=== PATIENT | female | born 1995 | race Caucasian/White ===

== ENCOUNTER → 2016-06-21 | Outpatient (CLI) | payer OTHER | END | disposition home or self-care (01) | LOC: M LAB 12:28 | PROVIDERS: ATTEND Advanced Practice Midwife | DX: O26.851 Spotting complicating pregnancy, first trimester (principal) | CPT/HCPCS: 36415; 86850; 86901; J2790 ==

== ENCOUNTER 2016-10-27 17:50 | Outpatient (CLI) | payer OTHER ==
[~2016-10-27] VITALS: Ht 170.2 cm; Wt 75.0 kg
[2016-10-27 18:08] VITALS: BP 121/59
[2016-10-27] MEDS ORDERED: ACET50TA PO (18:14)
[2016-10-27] MEDS ORDERED: ZOLO50TA PO (18:14)
[2016-10-27] MEDS ORDERED: AMOX500C PO (18:14)
[2016-10-27] MEDS ORDERED: PRENTAB9 PO (18:14)
[2016-10-27] MEDS ORDERED: TUMS500C PO (18:14)
[2016-10-27 18:55] LABS: ALT/SGPT 27 U/L (12-78); AST/SGOT 18 U/L (15-37); BILIRUBIN,TOTAL 0.2 MG/DL (0.2-1.0); CREATININE FOR GFR 0.54 MG/DL (0.55-1.02); GLOMERULAR FILTRATION RATE > 60.0 (>60); URIC ACID 2.8 MG/DL (2.6-6.0)
[2016-10-27 19:11] LABS: MEAN CORPUSCULAR HEMOGLOBIN 32.4 pg (27.0-33.0); MEAN CORPUSCULAR HGB CONC 34.7 g/dl (32.0-36.5); MEAN CORPUSCULAR VOLUME 93.1 fl (80.0-96.0); RED CELL DISTRIBUTION WIDTH 12.9 % (11.5-14.5); WHITE BLOOD COUNT 8.8 K/mm3 (4.0-10.0)
[2016-10-27 19:24] VITALS: BP 116/69
--- NOTE | 2016-10-28 03:19 | HPE ---
DATE OF ADMISSION: 10/27/2016 This lady is a 21-year-old 1, para 0, last menstrual period (LMP) 03/25/2016, estimated date of confinement (EDC) 12/30/2016, at 30 and 5 weeks of gestation. She was told by a friend of hers that she should be evaluated for preeclampsia because her friend had preeclampsia and the patient demonstrates some dizziness and has a headache times 48 hours. Her risk factor is that she has extreme anxiety. She is on Zoloft 50 mg. She has anemia and she is Rh negative. Her labs show O negative, HIV negative, hepatitis negative, RPR negative, rubella immune. Varicella immune. Urine was negative. Gonorrhea and chlamydia negative. 1-hour glucose was 97. Cystic fibrosis was negative. Integrated screen was declined and flu shot is declined. In reviewing her blood work and her blood pressures, her blood pressures on 11 exams, the minimal blood pressure is 101/55. The highest blood pressure was 127/70. Her total weight gain was 22 pounds. Her anatomy scan was normal. Her hemoglobin was 12.8, hematocrit 36.8. She is O negative and received RhoGAM at her 28-week visit. Her 1-hour glucose was normal and she had no issues or complaints outside of extreme anxiety at which her primary care would not increase her Zoloft from 25 to 50, but her any commodity buyer (ASSET LIABILITY ANALYST) increased it from 25 to 50 and seemed to reduce her anxiety. The rest of her chemistry was unremarkable. Today, her hemoglobin is normal at 12.3, hematocrit 35.5. Her platelets are normal at 232. Her creatinine was 0.54. Her GFR is greater than 60, uric acid was 2.8. Liver functions were normal. Her protein creatinine ratio is 0.159 and she was able to cope with her headache. Her main concern was her dizziness and what to do and we explained the hemodynamic process of what goes on in , especially in the third trimester. On examination presently, she is in no acute distress. Her blood pressure highest was 121/59, respirations are 18, pulse is 95 and temperature is 98.8. Her eye grounds are normal. Reflexes are normal. No edema in the upper and lower extremities. No right upper quadrant pain. No blurred vision. She has a little bit of a headache and her baseline heart is 140-145 with 15 x 15 accelerations, no decelerations and minimal uterine activity. She denies any loss of fluid or vaginal bleeding. The rest of the examination is unremarkable. She is normocephalic, atraumatic. Neck full range of motion. Pupils equal and reactive to light. Her distal pulses are symmetric. No evidence of deep venous thrombosis (DVT), pulmonary embolus (PE) or superficial phlebitis. Her lungs are clear bilaterally to bases. No costovertebral angle (CVA) tenderness. Symphysis fundus height is appropriate. Nontender. Four quadrant bowel sounds are noted. As mentioned, a category one strip. She has no rashes or lesions or pruritus. No arthralgia, myalgia. No complaints of cough, wheezes, shortness of breath or dyspnea on exertion. No chest pain. She is not bleeding. Neurologically complete. No incontinency, urgency, frequency. No nausea, vomiting, diarrhea or constipation. She has no diabetic issues. Gynecologic (RECOVERY AGENT) issues are negative. Past medical is unremarkable. Surgical is unremarkable. Family history is noncontributory. There is no family history of hypertension, chronic hypertension, heart disease. She does not smoke or drink. She does not abuse drugs. She is and she is presently here by herself. Her has been deployed. After consultation with the patient and spending 40 minutes in discussion, the patient acknowledges understanding and acknowledges the precautionary measures. The patient was discharged has a followup appointment 11/02/2016.
== END 2016-10-27 19:25 | disposition home or self-care (01) ==
LOC: M LDO 17:50
PROVIDERS: ATTEND Obstetrics & Gynecology
DX: O26.893 Other specified pregnancy related conditions, third trimester (principal); R42 Dizziness and giddiness; R51 Headache; Z3A.30 30 weeks gestation of pregnancy; O99.343 Other mental disorders complicating pregnancy, third trimester; F41.9 Anxiety disorder, unspecified; O99.013 Anemia complicating pregnancy, third trimester; Z79.899 Other long term (current) drug therapy

== ENCOUNTER → 2016-10-28 | Outpatient (CLI) | payer OTHER ==
[~2016-10-28] MED LIST: ACET50TA PO; AMOX500C PO; PRENTAB9 PO; TUMS500C PO; ZOLO50TA PO
== END ==
LOC: M LAB 23:50
PROVIDERS: ATTEND Obstetrics & Gynecology
DX: I10 Essential (primary) hypertension (principal)

== ENCOUNTER 2016-11-17 03:17 | Outpatient (CLI) | payer OTHER ==
[~2016-11-17] VITALS: Ht 172.7 cm; Wt 75.0 kg
[2016-11-17 03:37] VITALS: BP 120/66
[2016-11-17] MEDS ORDERED: FERR325T3 PO (05:07)
== END 2016-11-17 04:42 | disposition home or self-care (01) ==
LOC: M LDO 03:17
PROVIDERS: ATTEND Student in an Organized Health Care Education/Training Program
DX: O47.03 False labor before 37 completed weeks of gestation, third trimester (principal); Z3A.33 33 weeks gestation of pregnancy

== ENCOUNTER 2016-12-19 22:26 | Outpatient (CLI) | payer OTHER ==
[~2016-12-19] VITALS: Ht 170.2 cm; Wt 79.0 kg
[~2016-12-19 22:26] MED LIST changes: +FERR325T3 PO
[2016-12-19 22:38] VITALS: BP 132/86
[2016-12-19 23:05] VITALS: BP 132/73
[2016-12-19 23:21] VITALS: BP 124/70
--- NOTE | 2016-12-20 11:52 | HPE ---
DATE: 12/19/2016 21-year-old 1, para 0, history of decreased movement at 38+ weeks of gestation. Last period 03/25/2016, EDC 12/30/2016. Risk factors has asthma, anxiety and history of pulmonary stenosis. LABORATORY DATA: O negative. HIV negative. Hepatitis negative. RPR negative. Rubella immune. Varicella immune. Urine negative. Gonorrhea and chlamydia are negative. GBS negative. CF negative. 1-hour glucose 97. On examination the patient is no acute distress. Has a category 1 strip. No contractions. No decelerations 15 x 15 x 15 seconds. Blood pressure 124/70, respirations are 16, pulse 63, temperature 97.7. Urine is in 1015, pH 6+, 1 leukocytes, and trace protein. The rest the examination unremarkable. Normocephalic, atraumatic. Neck: Full range of motion. Pupils equal and reactive to light. Distal pulses are symmetric. No evidence of deep venous thrombosis (DVT), pulmonary embolism (PE) or superficial phlebitis. Reflexes are normal. Chest is clear bilaterally to bases. No wheezes or rhonchi. No costovertebral angle (CVA) tenderness. Four quadrant bowel sounds appropriate. Symphysis fundus height as mentioned category 1 strip. No rashes, lesions or pruritus. No arthralgia, myalgia. No complaints of cough, wheeze, shortness of breath or dyspnea on exertion. No chest pain not bleeding. Neuro complete. No incontinency, urgency, or frequency. No nausea, vomiting, diarrhea or constipation. No diabetic issues. No MATERIAL FLOW ANALYST issues. PAST MEDICAL HISTORY AND SURGICAL HISTORY: Unremarkable. FAMILY HISTORY: Noncontributory. Does not smoke, drink, or abuse drugs. 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 In summary I have a 30+ week of gestation had decreased movement. We reviewed kick chart, premature rupture of membranes bleeding and contractions. Went to call the provider. Precautions were given and the patient was discharged undelivered. Has a followup in 48 hours in the office. cc: [facility]
== END 2016-12-19 23:34 | disposition home or self-care (01) ==
LOC: M LDO 22:26
PROVIDERS: ATTEND Obstetrics & Gynecology
DX: O36.8130 Decreased fetal movements, third trimester, not applicable or unspecified (principal); O99.513 Diseases of the respiratory system complicating pregnancy, third trimester; J45.909 Unspecified asthma, uncomplicated; O99.343 Other mental disorders complicating pregnancy, third trimester; F41.9 Anxiety disorder, unspecified; Z3A.38 38 weeks gestation of pregnancy

== ENCOUNTER 2016-12-22 21:04 | Inpatient (IN) | payer OTHER ==
[~2016-12-22] VITALS: Ht 172.1 cm; Wt 79.0 kg
[2016-12-22] MEDS ORDERED: LR 1,000 ML IV SCH (22:30)
[2016-12-22] MEDS ORDERED: LACTATED RINGER'S 1000 ML IV STA (22:30)
--- NOTE | 2016-12-22 22:51 | HPEPDOC ---
Obstetrical History & Physical General Date of Admission Dec 22, 2016 at 22:27 History of Present Illness 21 yo G1 @ 38+6 by LMP([id number]) and 8+3 wks US on [id number] presents to L&D ambulatory with c/o LOF @ 2019 and CTXs. Denies DFM and VB. GBS negative. Chief Complaint: Contractions, term, LOF, term Information Provided By: Patient Age: 21 : 1 Term: 0 Pre-term: 0 Abortions: 0 Livin Care Care: Good Care Number of Visits: 11 Dating Final EDC: Dec 30, 2016 Final EDC for Daily Update: Dec 30, 2016 Final EDC by: LMP LMP: Mar 25, 2016 1st Trimester Date: May 23, 2016 Weeks + Days: 8.3 Estimated Date of Confinement: Dec 30, 2016 EGA at Admission: 38.6 Antepartum Course Diagnos(e)s 1. Rh negative- spouse is Rh negative-refused rhogam 2. asthma- albuterol prn 3. anxiety- zoloft 4. hx pulmonary stenosis Height (inches): 68 Pre- weight (lbs.): 145 Admission Weight (lbs.): 178 Change in Weight (lbs.): 33 Past Medical History Past Obstetrical History : Past Obstetrical History: Primgravida TOOL CRIB ATTENDANT History: No pertinent history Past Medical History Surgical History: Denies/None Family History Significant Family History: No pertinent family hx Social History Social history Spouse is in [facility] Marital Status: Family situation: Spouse/partner deployed Psychosocial History: Anxiety, Att. deficit disorder * Smoker: non-smoker Alcohol: Denies Drugs: denies Abuse Violence Screening Have you been hit/kicked/slapp: No Have you been sexually assault: No Imunizations Tdap status: declined Influenza Status: current ([id number]) Allergies Coded Allergies: Pineapple (Verified Allergy, Intermediate, SWOLLEN TONGUE, MOUTH SORES, ) Medications Scheduled Amoxicillin (Amoxicillin) 500 Mg Cap, 500 MG PO Q8H Calcium Carbonate (Tums) 500 Mg Chw, 500 MG PO 1T Multivitamins/ ( 27-0.8 mg) 1 Tab Tab, 1 TAB PO DAILY Sertraline Hcl (Zoloft) 50 Mg Tab, 50 MG PO DAILY Scheduled PRN Acetaminophen (Mapap) 500 Mg Tab, 1,000 MG PO for MILD PAIN (PS 1-4) Miscellaneous Medications Ferrous Sulfate (Ferrous Sulfate) 325 Mg Tab, 325 MG PO Physical Examination Physical Examination GENERAL: A&O x 3 ABDOMEN: Gravid and non-tender to touch. FETUS: fetus is VTX by Jay and SVE HEART RATE: RRR, no m/r/g LUNGS: CTA EXTREMITIES: No edema. No clonus. DTR +1 EFW- 3200 grams Laboratory Data CBC/BMP 8.8/12.3/35.5/232 Urine Culture: Other (mixed raad) Pertinent Laboratoy Data Blood Type: O- RBC Antibody Screen: Negative HIV: Negative Hepatitis B: Negative Hepatitis C: Unknown Rapid Plasma Reagin: Nonreactive Rubella: Immune Varicella: Immune Chlamydia/Gonorrhea: Negative Group B Streptococcus: Negative Cystic Fibrosis: Negative Anatomy Ultrasound Ultrasound Date: Aug 13, 2016 Placenta Location: Posterior Normal Anatomy: Yes Placenta Previa: No Estimated Weight (grams): 337 Steroid Therapy Steroid Therapy: No Vaginal Examination Dilation: 5 cm Effacement: 75% Station: -2 Cervical Consistency: Soft Cervical Position: Middle Presentation: Cephalic presentation Position: Vertex (occiput) Assessment Heart Rate (FHR): 140 Variability: Moderate Accelerations: Positive Decelerations: Variable Tocometer Contractions: Yes Frequency: regular, every 2-5 min. Duration: less than 90 seconds Strength: palpated as moderate, resting tone palp/soft Multi-drug resistant Organism: No history of MDRO Assessment/Plan Assessment 21 yo G1 @ 38+6 SROM clear fluid @ 2019. CAT II FHR tracing, active labor Plan Admit and orient. Dispatcher Chief Coal Slurry and consent. Diet: clear liquid GBS negative Labs and IV per unit protocol Counseled on Pitocin IOL LR bolus 1000 ml, then 125 ml/hr Anticipate Anesthesia consult Expectant management C-S as appropriate. CARA JACOBS CNM Dec 22, 2016 22:51
[2016-12-22 23:00] LABS: MEAN CORPUSCULAR HEMOGLOBIN 31.7 pg (27.0-33.0); MEAN CORPUSCULAR HGB CONC 34.3 g/dl (32.0-36.5); MEAN CORPUSCULAR VOLUME 92.5 fl (80.0-96.0); RED CELL DISTRIBUTION WIDTH 13.3 % (11.5-14.5); WHITE BLOOD COUNT 8.9 K/mm3 (4.0-10.0)
[2016-12-22] MEDS ORDERED: FENTANYL 2MCG/ML ROPIVACAINE 0.2% IN 0.9% NACL 200ML IVBAG As Ordered ONE (23:22)
[2016-12-22] MEDS ORDERED: EPIDURAL/PCA KEYS XX PRN (23:32)
[2016-12-22] MEDS ORDERED: EPIDURAL COMMENT XX SCH (23:32)
[2016-12-22] MEDS ORDERED: REFRIGERATOR IV KEYS XX PRN (23:32)
[2016-12-22] MEDS ORDERED: ePHEDrine SULFATE 25 MG/5 ML(5MG/ML) SYRINGE IV PRN (23:32)
[2016-12-22] MEDS ORDERED: ONDANSETRON 4MG/2ML VIAL (J2405) IV PRN (23:32)
[2016-12-22] MEDS ORDERED: FENTANYL/ROPIVACAINE/NACL BAG 200 ML EPIDURAL SCH (23:32)
[2016-12-22] MEDS ORDERED: NALOXONE INJ 0.4 MG/1 ML VIAL (J2310) IV PRN (23:32)
[2016-12-22] MEDS ORDERED: diphenhydrAMINE INJ 50MG/ML VIAL (J1200) IV PRN (23:32)
[2016-12-22] MEDS ORDERED: LACTATED RINGER'S 1000 ML IV PRN (23:32)
[2016-12-23] MEDS ORDERED: OXYTOCIN DRIP 30 UNITS in APPROPRIATE DILUENT 1 EA IV SCH ×2 (00:30→07:10)
--- NOTE | 2016-12-23 00:30 | IPNPDOC ---
Text Note Date of Service The patient was seen on 12/23/16. NOTE [id number] @ 0023 21 yo G1 @ 38+6 by LMP([id number]) and 8+3 wks US on [id number] presents to L&D ambulatory with SROM, clear fluid @ 2019 and CTXs. GBS negative. S: Pt is comfortable with epidural infusing O: VS- mild range BPs prior to epidural placement, all other VS WNL, afebrile FHR- 130, moderate variability, + accels, no decels CTX- Q 3-5 min, lasting < 90 sec SROM x 4 hours, fluid remains clear SHARON Stark, RN did an exam after epidural placement no change from previous exam A: 21 yo G1 @ 39+0 with CAT I FHR tracing, SROM x 4 hours with no sx of infection and no cervical change P: continue to monitor and assess, reassess in 2 hours or prn, initiate pitocin IOL VS,Fishbone, I+O VS, Fishbone, I+O Laboratory Tests 12/22/16 22:40 Red Blood Count 4.19, Mean Corpuscular Volume 92.5, Mean Corpuscular Hemoglobin 31.7, Mean Corpuscular Hemoglobin Concent 34.3, Red Cell Distribution Width 13.3 CARA JACOBS CNM Dec 23, 2016 00:30
[2016-12-23] MEDS ORDERED: raNITIdine SYRUP 150 MG/10 ML UDC GT ONE (00:45)
[2016-12-23 07:08] VITALS: BP 136/75
[2016-12-23] MEDS ORDERED: DIBUCAINE 1% OINTMENT 30GM TOP PRN (07:15)
[2016-12-23] MEDS ORDERED: MOM 30ML SUSPENSION UDC PO PRN (07:15)
[2016-12-23] MEDS ORDERED: ONDANSETRON 4MG/2ML VIAL (J2405) IV PRN (07:15)
[2016-12-23] MEDS ORDERED: PROMETHAZINE 25 MG TAB PO PRN (07:15)
[2016-12-23] MEDS ORDERED: DOCUSATE SODIUM 100 MG CAP PO PRN (07:15)
[2016-12-23] MEDS ORDERED: miSOPROStol 200 MCG TAB (S0191) PR ONE (07:15)
--- NOTE | 2016-12-23 07:15 | DNPDOC ---
[facility] Delivery Note Delivery Note DATE OF DELIVERY: Dec 23, 2016 at 0548 PREDELIVERY DIAGNOSIS: 39+0 POST DELIVERY DIAGNOSIS: Delivered. PROCEDURE: AUTOMOBILE MECHANIC: Linda Mccarthy CNM ANESTHESIA: epidural ESTIMATED BLOOD LOSS: 350 mL. FINDINGS: female , Score 9/9 DELIVERY SUMMARY: 21 yo G1 n P1001 who was admitted to labor and delivery for SROM clear fluid with CTX. Minimal progress over 3 hours. Pitocin started. Patient progressed to c/c/+2 with epidural infusing and a strong desire to push ; delivery was via of a viable female infant to a clean field; the infant presented occiput anterior with no nuchal cord noted; anterior shoulder(left) delivered with mild downward traction, then the posterior shoulder delivered with mild upward traction; remainder of corpus delivered spontaneously; infant placed on mother's abdomen. Bulb suction was performed and initial cleaning completed, delayed cord clamping x 3 minutes, then cord clamped x 2 and cut by myself; the child had a vigorous cry and was moved to mother's chest for skin-to -skin; pitocin was started with delivery of the anterior shoulder; 3 vessel cord and normal placenta were delivered without complications approx 5 minutes later; fundal massage was applied and vaginal vault was swept for clots; vagina and perineum examined; 2MLL and bilat labial lacerations noted. Repaired in usual fashion. Dr. Dumont called to bedside d/t inabiliy to stop bleeding from right labia. When he arrived excellent hemostasis noted. Fundus firm at U-1. FOD=809 ml, had 9/9; mother and are bonding well and were stable in the delivery room; anticipate routine PP course. Delivering Provider: EDUARDA Bond KELLI C. CNM Dec 23, 2016 07:15
[2016-12-23] MEDS: IBUPROFEN 800 MG TAB PO PRN ×3 (08:45→23:26)
[2016-12-23] MEDS: PRENATAL VITAMINS CHEWABLE TABLET PO SCH (08:45)
[2016-12-23] MEDS: SERTRALINE HCL 50 MG TAB PO SCH (08:46)
[2016-12-23] MEDS: raNITIdine SYRUP 150 MG/10 ML UDC GT SCH ×2 (09:08→21:00)
[2016-12-23] MEDS: ACETAMINOPHEN 500 MG TAB PO PRN (17:21)
[2016-12-23 17:52] VITALS: BP 128/76
[2016-12-24 05:32] VITALS: BP 129/74
[2016-12-24] MEDS: PRENATAL VITAMINS CHEWABLE TABLET PO SCH (08:48)
[2016-12-24] MEDS: SERTRALINE HCL 50 MG TAB PO SCH (08:49)
[2016-12-24] MEDS: ACETAMINOPHEN 500 MG TAB PO PRN (08:53)
[2016-12-24] MEDS ORDERED: ACET50TA PO (09:49)
[2016-12-24] MEDS ORDERED: NUPE1OIN2 TOP (09:49)
[2016-12-24] MEDS ORDERED: COLA100C5 PO (10:00)
[2016-12-24] MEDS ORDERED: IBUP-1114 PO (10:02)
[2016-12-24] MEDS ORDERED: miSOPROStol 200 MCG TAB (S0191) As Ordered ONE (11:45)
== END 2016-12-24 12:00 | disposition home or self-care (01) | DRG 775 ==
LOC: M LDO 21:04 → M LDI 22:27 → M OBS 12-23 17:30
PROVIDERS: ADMIT Midwife; ATTEND Student in an Organized Health Care Education/Training Program
PROC: 10E0XZZ Delivery of Products of Conception, External Approach (ICD-10-PCS; principal; 2016-12-23)
PROC: 0KQM0ZZ Repair Perineum Muscle, Open Approach (ICD-10-PCS; 2016-12-23)
DX: O99.52 Diseases of the respiratory system complicating childbirth (principal); Z37.0 Single live birth; Z3A.38 38 weeks gestation of pregnancy; F41.9 Anxiety disorder, unspecified; Z79.899 Other long term (current) drug therapy; J45.909 Unspecified asthma, uncomplicated; Z91.018 Allergy to other foods; O70.1 Second degree perineal laceration during delivery; O99.344 Other mental disorders complicating childbirth

== ENCOUNTER 2017-12-19 20:17 | Emergency (ER) | payer OTHER ==
[2017-12-19] MEDS: ACETAMINOPH W/CODEINE #3 TAB UD PO (21:52)
[2017-12-19] MEDS: KETOROLAC TROMETHAMINE 10 MG TAB PO (21:52)
== END 2017-12-19 21:56 | disposition home or self-care (01) ==
LOC: M ED 20:17
DX: M25.531 Pain in right wrist (principal); M54.12 Radiculopathy, cervical region; J45.909 Unspecified asthma, uncomplicated; F41.9 Anxiety disorder, unspecified; F90.9 Attention-deficit hyperactivity disorder, unspecified type; Z91.018 Allergy to other foods
CPT/HCPCS: 73110